=== PATIENT | male | born 1945 | race Caucasian/White ===

== ENCOUNTER 2025-06-21 16:14 | Inpatient (IN) ==
[2025-06-21 17:05] LABS: Basophils # (Auto) 0.04 K/mcL (0.00-0.30); Basophils % (Auto) 0.3 % (0.0-2.0); Eosinophils # (Auto) 0.20 K/mcL (0.00-0.70); Eosinophils % (Auto) 1.3 % (0.0-7.0); Hematocrit 39.3 % (40.1-51.0); Hemoglobin 11.8 g/dL (13.7-17.5); Lymphocytes # (Auto) 0.78 K/mcL (1.50-4.80); Lymphocytes % (Auto) 5.1 % (15.5-49.0); Mean Corpuscular HGB Conc 30.0 g/dL (31.0-36.0); Monocytes # (Auto) 1.90 K/mcL (0.10-0.90); Monocytes % (Auto) 12.5 % (1.0-12.0); Neutrophils % (Auto) 80.6 % (38.0-78.0); Platelet Count 338 K/mcL (140-440); RBC 3.98 M/mcL (4.63-6.08); WBC 15.3 K/mcL (4.5-11.0)
[2025-06-21 17:28] LABS: ALT/SGPT 16 U/L (<40); AST/SGOT 29 U/L (<40); Albumin 3.1 gm/dL (3.2-5.2); Albumin/Globulin Ratio 0.7 (1.0-2.3); Alkaline Phosphatase 68 U/L (39-117); Anion Gap 11.0 (8.0-16.0); Bilirubin,Total 0.5 mg/dL (0.1-1.0); Blood Urea Nitrogen 38 mg/dL (8-23); Calcium 9.5 mg/dL (8.6-10.4); Carbon Dioxide 36 mmol/L (22-30); Chloride 91 mmol/L (96-108); Globulin 4.2 gm/dL (2.2-3.7); Glucose 157 mg/dL (70-105); Potassium 4.1 mmol/L (3.3-5.1); Sodium 138 mmol/L (133-145)
[2025-06-21 17:29] LABS: Thyroid Stimulating Hormone 1.89 uIU/mL (0.27-5.01)
[2025-06-21] MEDS: cefTRIAXone 1 GM VIAL IV ONE (18:45)
[2025-06-21 18:46] LABS: Bacteria,Urine Few /hpf (0); Bilirubin,Urine Negative (Negative); Color,Urine YELLOW; Glucose,Urine (UA) NEGATIVE (Negative); Ketones,Urine NEGATIVE (Negative); Leukocyte Esterase,Urine TRACE /uL (Negative); PH,Urine 5.5 (5.0-9.0); Protein,Urine 100 mg/dL (Negative); Specific Gravity,Urine >= 1.030 (1.000-1.035); Urobilinogen,Urine 0.2 mg/dL
[2025-06-21] MEDS: AZITHROMYCIN 500 MG in DEXTROSE 5% IN WATER 250 ML IV ONE (18:48)
[2025-06-21 19:00] LABS: C-Reactive Protein 25.30 mg/dL (0.03-0.80)
[2025-06-21] MEDS: IPRATROPIUM/ALBUTEROL 3 ML AMPUL.NEB NEB SCH (19:49)
[2025-06-21] MEDS: IPRATROPIUM/ALBUTEROL 3 ML AMPUL.NEB NEB ONE (19:49)
[2025-06-21] MEDS: DOXYCYCLINE 100 MG in DEXTROSE 5% IN WATER 100 ML IV SCH (21:15)
[2025-06-21] MEDS ORDERED: ONDANSETRON 4 MG/2 ML VIAL IV PRN (22:44)
[2025-06-21] MEDS ORDERED: SENNOSIDES 1 TABLET PO PRN (22:44)
[2025-06-21] MEDS ORDERED: LACTULOSE 20 GM/30 ML ORAL.SOL PO PRN (22:44)
[2025-06-21] MEDS: 0.9 % SODIUM CHLORIDE 10 ML SYRINGE IV SCH (23:29)
[2025-06-21] MEDS: HEPARIN 5,000 UNIT/ML VIAL SQ SCH (23:34)
[2025-06-22] MEDS: HEPARIN 5,000 UNIT/ML VIAL ONE (00:24)
[2025-06-22] MEDS: CEFEPIME 1 GM VIAL ONE (00:38)
[2025-06-22] MEDS: FUROSEMIDE 40 MG/4 ML VIAL IV ONE ×3 (00:38→11:58)
[2025-06-22] MEDS: CEFEPIME 2 GM VIAL IV SCH (00:39)
[2025-06-22] MEDS: IPRATROPIUM/ALBUTEROL 3 ML AMPUL.NEB NEB PRN (03:21)
[2025-06-22 05:00] LABS: Basophils # (Auto) 0.01 K/mcL (0.00-0.30); Basophils % (Auto) 0.1 % (0.0-2.0); Eosinophils # (Auto) 0.02 K/mcL (0.00-0.70); Eosinophils % (Auto) 0.2 % (0.0-7.0); Hematocrit 34.5 % (40.1-51.0); Hemoglobin 10.4 g/dL (13.7-17.5); Lymphocytes # (Auto) 0.32 K/mcL (1.50-4.80); Lymphocytes % (Auto) 2.5 % (15.5-49.0); Mean Corpuscular HGB Conc 30.1 g/dL (31.0-36.0); Monocytes # (Auto) 0.18 K/mcL (0.10-0.90); Monocytes % (Auto) 1.4 % (1.0-12.0); Neutrophils % (Auto) 95.6 % (38.0-78.0); Platelet Count 298 K/mcL (140-440); RBC 3.48 M/mcL (4.63-6.08); WBC 12.7 K/mcL (4.5-11.0)
[2025-06-22 05:00] LABS: ALT/SGPT 14 U/L (<40); AST/SGOT 27 U/L (<40); Albumin 2.8 gm/dL (3.2-5.2); Albumin/Globulin Ratio 0.7 (1.0-2.3); Alkaline Phosphatase 65 U/L (39-117); Anion Gap 7.6 (8.0-16.0); Bilirubin,Direct < 0.2 mg/dL (0-0.3); Bilirubin,Total 0.4 mg/dL (0.1-1.0); Blood Urea Nitrogen 40 mg/dL (8-23); Calcium 9.3 mg/dL (8.6-10.4); Carbon Dioxide 37 mmol/L (22-30); Chloride 92 mmol/L (96-108); Globulin 4.2 gm/dL (2.2-3.7); Glucose 178 mg/dL (70-105); Phosphorous 4.4 mg/dL (2.5-4.5); Potassium 4.7 mmol/L (3.3-5.1); Sodium 136 mmol/L (133-145); Triglycerides 125 mg/dL (<150); Uric Acid 8.0 mg/dL (2.5-8.0)
[2025-06-22 06:23] LABS: Basophils # (Auto) 0 K/mcL (0.00-0.30); Basophils % (Auto) 0 % (0.0-2.0); Eosinophils # (Auto) 0 K/mcL (0.00-0.70); Eosinophils % (Auto) 0 % (0.0-7.0); Hematocrit 37.9 % (40.1-51.0); Hemoglobin 11.6 g/dL (13.7-17.5); Lymphocytes # (Auto) 0.29 K/mcL (1.50-4.80); Lymphocytes % (Auto) 2.9 % (15.5-49.0); Mean Corpuscular HGB Conc 30.6 g/dL (31.0-36.0); Monocytes # (Auto) 0.10 K/mcL (0.10-0.90); Monocytes % (Auto) 1.0 % (1.0-12.0); Neutrophils % (Auto) 95.9 % (38.0-78.0); Platelet Count 271 K/mcL (140-440); RBC 3.86 M/mcL (4.63-6.08); WBC 9.9 K/mcL (4.5-11.0)
[2025-06-22] MEDS ORDERED: ATROPINE SULFATE 1 MG/ML VIAL IV PRN (06:33)
[2025-06-22] MEDS ORDERED: cefTRIAXone 1 GM VIAL IV SCH (09:00)
[2025-06-22 09:05] LABS: ALT/SGPT 15 U/L (<40); AST/SGOT 30 U/L (<40); Albumin 2.7 gm/dL (3.2-5.2); Albumin/Globulin Ratio 0.6 (1.0-2.3); Alkaline Phosphatase 63 U/L (39-117); Anion Gap 13.0 (8.0-16.0); Bilirubin,Direct < 0.2 mg/dL (0-0.3); Bilirubin,Total 0.2 mg/dL (0.1-1.0); Blood Urea Nitrogen 41 mg/dL (8-23); Calcium 9.3 mg/dL (8.6-10.4); Carbon Dioxide 32 mmol/L (22-30); Chloride 92 mmol/L (96-108); Globulin 4.2 gm/dL (2.2-3.7); Glucose 189 mg/dL (70-105); Phosphorous 5.1 mg/dL (2.5-4.5); Potassium 4.8 mmol/L (3.3-5.1); Sodium 137 mmol/L (133-145); Triglycerides 100 mg/dL (<150); Uric Acid 8.6 mg/dL (2.5-8.0)
[2025-06-22] MEDS: PANTOPRAZOLE 40 MG TABLET PO SCH (10:23)
[2025-06-22] MEDS: GLUCAGON,HUMAN RECOMBINANT 1 MG VIAL IV ONE ×2 (10:23→11:58)
[2025-06-22] MEDS ORDERED: DEXTROSE 31 GM ORAL.SUSP PO PRN (11:23)
[2025-06-22] MEDS ORDERED: DEXTROSE 50% 50 ML VIAL IV PRN (11:23)
[2025-06-22] MEDS: INSULIN LISPRO 1 UNIT/0.01 ML UNIT SQ SCH (11:58)
[2025-06-22] MEDS ORDERED: ATROPINE SULFATE 1 MG/10 ML SYRINGE IV ONE (14:06)
[2025-06-22] MEDS: FLUTICASONE/SALMETEROL 250/50 INHALER #14 INH SCH (20:11)
[2025-06-23 05:56] LABS: Basophils # (Auto) 0 K/mcL (0.00-0.30); Basophils % (Auto) 0 % (0.0-2.0); Eosinophils # (Auto) 0 K/mcL (0.00-0.70); Eosinophils % (Auto) 0 % (0.0-7.0); Hematocrit 35.1 % (40.1-51.0); Hemoglobin 11.0 g/dL (13.7-17.5); Lymphocytes # (Auto) 0.54 K/mcL (1.50-4.80); Lymphocytes % (Auto) 4.0 % (15.5-49.0); Mean Corpuscular HGB Conc 31.3 g/dL (31.0-36.0); Monocytes # (Auto) 0.93 K/mcL (0.10-0.90); Monocytes % (Auto) 6.8 % (1.0-12.0); Neutrophils % (Auto) 89.0 % (38.0-78.0); Platelet Count 286 K/mcL (140-440); RBC 3.62 M/mcL (4.63-6.08); WBC 13.7 K/mcL (4.5-11.0)
[2025-06-23 06:23] LABS: ALT/SGPT 14 U/L (<40); AST/SGOT 22 U/L (<40); Albumin 2.6 gm/dL (3.2-5.2); Albumin/Globulin Ratio 0.7 (1.0-2.3); Alkaline Phosphatase 59 U/L (39-117); Anion Gap 8.0 (8.0-16.0); Bilirubin,Direct < 0.2 mg/dL (0-0.3); Bilirubin,Total 0.3 mg/dL (0.1-1.0); Blood Urea Nitrogen 46 mg/dL (8-23); Calcium 9.1 mg/dL (8.6-10.4); Carbon Dioxide 35 mmol/L (22-30); Chloride 91 mmol/L (96-108); Globulin 3.9 gm/dL (2.2-3.7); Glucose 205 mg/dL (70-105); Phosphorous 2.7 mg/dL (2.5-4.5); Potassium 4.7 mmol/L (3.3-5.1); Sodium 134 mmol/L (133-145); Triglycerides 108 mg/dL (<150); Uric Acid 8.2 mg/dL (2.5-8.0)
[2025-06-23] MEDS: ACETAMINOPHEN 325 MG TABLET PO PRN (07:22)
[2025-06-23] MEDS: acetaZOLAMIDE SOD 500 MG VIAL IV ONE (08:29)
[2025-06-23] MEDS: TIOTROPIUM BROMIDE 18 MCG INHALANT INH SCH (08:30)
[2025-06-23] MEDS: SPIRONOLACTONE 25 MG TABLET PO SCH (08:30)
[2025-06-23] MEDS ORDERED: FUROSEMIDE 40 MG TABLET PO SCH (09:00)
[2025-06-24 06:04] LABS: Basophils # (Auto) 0.01 K/mcL (0.00-0.30); Basophils % (Auto) 0.1 % (0.0-2.0); Eosinophils # (Auto) 0 K/mcL (0.00-0.70); Eosinophils % (Auto) 0 % (0.0-7.0); Hematocrit 36.7 % (40.1-51.0); Hemoglobin 11.3 g/dL (13.7-17.5); Lymphocytes # (Auto) 0.65 K/mcL (1.50-4.80); Lymphocytes % (Auto) 4.8 % (15.5-49.0); Mean Corpuscular HGB Conc 30.8 g/dL (31.0-36.0); Monocytes # (Auto) 1.49 K/mcL (0.10-0.90); Monocytes % (Auto) 10.9 % (1.0-12.0); Neutrophils % (Auto) 83.8 % (38.0-78.0); Platelet Count 301 K/mcL (140-440); RBC 3.71 M/mcL (4.63-6.08); WBC 13.6 K/mcL (4.5-11.0)
[2025-06-24 06:26] LABS: ALT/SGPT 15 U/L (<40); AST/SGOT 18 U/L (<40); Albumin 2.8 gm/dL (3.2-5.2); Albumin/Globulin Ratio 0.7 (1.0-2.3); Alkaline Phosphatase 59 U/L (39-117); Anion Gap 7.0 (8.0-16.0); Bilirubin,Direct < 0.2 mg/dL (0-0.3); Bilirubin,Total 0.2 mg/dL (0.1-1.0); Blood Urea Nitrogen 45 mg/dL (8-23); Calcium 9.3 mg/dL (8.6-10.4); Carbon Dioxide 35 mmol/L (22-30); Chloride 95 mmol/L (96-108); Globulin 3.8 gm/dL (2.2-3.7); Glucose 183 mg/dL (70-105); Phosphorous 2.7 mg/dL (2.5-4.5); Potassium 4.9 mmol/L (3.3-5.1); Sodium 137 mmol/L (133-145); Triglycerides 132 mg/dL (<150); Uric Acid 6.7 mg/dL (2.5-8.0)
[2025-06-24] MEDS: acetaZOLAMIDE SOD 500 MG VIAL IV ONE (08:13)
[2025-06-24] MEDS: ALBUMIN HUMAN 12.5 GM/50 ML VIAL IV ONE (08:13)
[2025-06-24] MEDS ORDERED: FUROSEMIDE 40 MG TABLET PO SCH (09:00)
[2025-06-24] MEDS: BUDESONIDE 0.5 MG/2 ML AMPUL.NEB NEB SCH (21:07)
[2025-06-24] MEDS: IPRATROPIUM/ALBUTEROL 3 ML AMPUL.NEB NEB SCH (21:07)
[2025-06-25 06:29] LABS: ALT/SGPT 17 U/L (<40); AST/SGOT 12 U/L (<40); Albumin 3.0 gm/dL (3.2-5.2); Albumin/Globulin Ratio 0.8 (1.0-2.3); Alkaline Phosphatase 58 U/L (39-117); Anion Gap 4.0 (8.0-16.0); Bilirubin,Direct < 0.2 mg/dL (0-0.3); Bilirubin,Total 0.2 mg/dL (0.1-1.0); Blood Urea Nitrogen 40 mg/dL (8-23); Calcium 9.6 mg/dL (8.6-10.4); Carbon Dioxide 36 mmol/L (22-30); Chloride 99 mmol/L (96-108); Globulin 3.6 gm/dL (2.2-3.7); Glucose 229 mg/dL (70-105); Phosphorous 2.7 mg/dL (2.5-4.5); Potassium 4.9 mmol/L (3.3-5.1); Sodium 139 mmol/L (133-145); Triglycerides 144 mg/dL (<150); Uric Acid 5.6 mg/dL (2.5-8.0)
[2025-06-25] MEDS ORDERED: FUROSEMIDE 40 MG TABLET PO SCH (09:00)
[2025-06-25] MEDS: acetaZOLAMIDE SOD 500 MG VIAL IV ONE (09:10)
[2025-06-26] MEDS: FUROSEMIDE 40 MG TABLET PO SCH (08:20)
[2025-06-28 06:16] LABS: Basophils # (Auto) 0.01 K/mcL (0.00-0.30); Basophils % (Auto) 0.1 % (0.0-2.0); Eosinophils # (Auto) 0.03 K/mcL (0.00-0.70); Eosinophils % (Auto) 0.2 % (0.0-7.0); Hematocrit 42.3 % (40.1-51.0); Hemoglobin 13.3 g/dL (13.7-17.5); Lymphocytes # (Auto) 0.57 K/mcL (1.50-4.80); Lymphocytes % (Auto) 3.5 % (15.5-49.0); Mean Corpuscular HGB Conc 31.4 g/dL (31.0-36.0); Monocytes # (Auto) 1.14 K/mcL (0.10-0.90); Monocytes % (Auto) 6.9 % (1.0-12.0); Neutrophils % (Auto) 87.3 % (38.0-78.0); Platelet Count 275 K/mcL (140-440); RBC 4.47 M/mcL (4.63-6.08); WBC 16.5 K/mcL (4.5-11.0)
[2025-06-28 06:38] LABS: ALT/SGPT 17 U/L (<40); AST/SGOT 11 U/L (<40); Albumin 3.4 gm/dL (3.2-5.2); Albumin/Globulin Ratio 1.0 (1.0-2.3); Alkaline Phosphatase 64 U/L (39-117); Anion Gap 5.0 (8.0-16.0); Bilirubin,Total 0.4 mg/dL (0.1-1.0); Blood Urea Nitrogen 31 mg/dL (8-23); Calcium 9.2 mg/dL (8.6-10.4); Carbon Dioxide 38 mmol/L (22-30); Chloride 93 mmol/L (96-108); Globulin 3.4 gm/dL (2.2-3.7); Glucose 207 mg/dL (70-105); Potassium 4.8 mmol/L (3.3-5.1); Sodium 136 mmol/L (133-145)
[2025-06-29 06:27] LABS: Basophils # (Auto) 0.02 K/mcL (0.00-0.30); Basophils % (Auto) 0.1 % (0.0-2.0); Eosinophils # (Auto) 0.03 K/mcL (0.00-0.70); Eosinophils % (Auto) 0.2 % (0.0-7.0); Hematocrit 38.8 % (40.1-51.0); Hemoglobin 12.4 g/dL (13.7-17.5); Lymphocytes # (Auto) 0.48 K/mcL (1.50-4.80); Lymphocytes % (Auto) 2.6 % (15.5-49.0); Mean Corpuscular HGB Conc 32.0 g/dL (31.0-36.0); Monocytes # (Auto) 1.13 K/mcL (0.10-0.90); Monocytes % (Auto) 6.2 % (1.0-12.0); Neutrophils % (Auto) 89.0 % (38.0-78.0); Platelet Count 246 K/mcL (140-440); RBC 4.09 M/mcL (4.63-6.08); WBC 18.3 K/mcL (4.5-11.0)
[2025-06-29 06:49] LABS: ALT/SGPT 15 U/L (<40); AST/SGOT 13 U/L (<40); Albumin 3.1 gm/dL (3.2-5.2); Albumin/Globulin Ratio 1.0 (1.0-2.3); Alkaline Phosphatase 58 U/L (39-117); Anion Gap 5.0 (8.0-16.0); Bilirubin,Total 0.3 mg/dL (0.1-1.0); Blood Urea Nitrogen 35 mg/dL (8-23); Calcium 8.9 mg/dL (8.6-10.4); Carbon Dioxide 35 mmol/L (22-30); Chloride 95 mmol/L (96-108); Globulin 3.0 gm/dL (2.2-3.7); Glucose 208 mg/dL (70-105); Potassium 5.0 mmol/L (3.3-5.1); Sodium 135 mmol/L (133-145)
[2025-06-30 04:12] VITALS: O2SAT 94
[2025-06-30 06:57] LABS: ALT/SGPT 13 U/L (<40); AST/SGOT 12 U/L (<40); Albumin 3.1 gm/dL (3.2-5.2); Albumin/Globulin Ratio 1.1 (1.0-2.3); Alkaline Phosphatase 60 U/L (39-117); Anion Gap 8.0 (8.0-16.0); Bilirubin,Total 0.3 mg/dL (0.1-1.0); Blood Urea Nitrogen 36 mg/dL (8-23); Calcium 9.0 mg/dL (8.6-10.4); Carbon Dioxide 33 mmol/L (22-30); Chloride 95 mmol/L (96-108); Globulin 2.9 gm/dL (2.2-3.7); Glucose 174 mg/dL (70-105); Potassium 4.9 mmol/L (3.3-5.1); Sodium 136 mmol/L (133-145)
[2025-06-30 07:01] LABS: Basophils # (Auto) 0.01 K/mcL (0.00-0.30); Basophils % (Auto) 0 % (0.0-2.0); Eosinophils # (Auto) 0.04 K/mcL (0.00-0.70); Eosinophils % (Auto) 0.2 % (0.0-7.0); Hematocrit 41.9 % (40.1-51.0); Hemoglobin 12.9 g/dL (13.7-17.5); Lymphocytes # (Auto) 0.72 K/mcL (1.50-4.80); Lymphocytes % (Auto) 3.3 % (15.5-49.0); Mean Corpuscular HGB Conc 30.8 g/dL (31.0-36.0); Monocytes # (Auto) 1.63 K/mcL (0.10-0.90); Monocytes % (Auto) 7.4 % (1.0-12.0); Neutrophils % (Auto) 86.7 % (38.0-78.0); Platelet Count 241 K/mcL (140-440); RBC 4.29 M/mcL (4.63-6.08); WBC 22.0 K/mcL (4.5-11.0)
[2025-06-30 10:39] VITALS: TEMP 97.4
== END 2025-06-30 14:13 | DRG 193 ==
LOC: ED 16:14 → ICU 22:27 → MEDSUR 06-24 15:43
PROVIDERS: ADMIT Student in an Organized Health Care Education/Training Program; ATTEND Internal Medicine